=== PATIENT | male | born 1950 | race African-American/Black ===

== ENCOUNTER 2022-05-19 10:31 | Observation (INO) ==
[2022-05-19] MEDS ORDERED: ENOXAPARIN 100 MG/ML SYRINGE SUBCUT STA (11:00)
[2022-05-19] MEDS ORDERED: ONDANSETRON 4 MG/2 ML VIAL IV STA (11:00)
[2022-05-19] MEDS ORDERED: ASPIRIN 325 MG TABLET PO STA (11:00)
[2022-05-19] MEDS ORDERED: NITROGLYCERIN SL 0.4 MG TABLET SL PRN (11:00)
[2022-05-19] MEDS ORDERED: ASPIRIN 325 MG TABLET ONE (11:01)
[2022-05-19 11:16] LABS: Basophils # 0.1 10*3/uL (0.0-0.2); Basophils % 1.2 % (0.0-0.8); Eosinophils # 0.1 10*3/uL (0.0-0.87); Eosinophils % 1.4 % (0.00-10.9); Hematocrit 41.6 VOL% (42.0-52.0); Hemoglobin 14.3 GM/DL (14.0-18.0); Immature Granulocytes % 0.2 %; Immature Granulocytes Absolute 0.01 #; Lymphocytes # 1.5 10*3/uL (1.4-4.0); Lymphocytes % 25.5 % (21.2-54.2); Mean Corpuscular HGB Conc 34.4 GM/DL (32-36); Mean Corpuscular Volume 92.4 FL (87-102); Mean Platelet Volume 11.7 FL (9.6-12.0); Monocytes # 0.6 10*3/uL (0.11-0.8); Monocytes % 10.7 % (1.7-12.7); Platelet Count 193 T/CUMM (130-400); Red Cell Distribution Width 13.5 % (9.3-17.3); White Blood Count 5.9 T/CUMM (4-12)
[2022-05-19 11:36] LABS: Albumin 4.4 G/DL (3.4-5.0); Bilirubin,Total 0.5 MG/DL (0.20-1.00); Osmolality,Calculated 284.3 MOS/KG (273-304); Potassium 3.7 MMOL/L (3.5-5.1); Total Protein 8.4 G/DL (6.4-8.2)
[2022-05-19] MEDS ORDERED: LACTULOSE 20 GM/30 ML UDCUP PO PRN (12:22)
[2022-05-19] MEDS ORDERED: ACETAMINOPHEN 325 MG TABLET PO PRN (12:22)
[2022-05-19] MEDS ORDERED: SIMETHICONE CHEW 125 MG TABLET PO PRN (12:22)
[2022-05-19] MEDS ORDERED: hydrALAZINE 20 MG/1 ML VIAL IV PRN (12:22)
[2022-05-19] MEDS ORDERED: ONDANSETRON 4 MG/2 ML VIAL IV PRN (12:22)
[2022-05-19] MEDS ORDERED: DOCUSATE SODIUM 100 MG CAPSULE PO PRN (12:22)
[2022-05-19] MEDS ORDERED: GLUCAGON 1 MG VIAL IM PRN (12:25)
[2022-05-19] MEDS ORDERED: DEXTROSE 10% 250 ML BAG IV PRN (12:27)
[2022-05-19] MEDS: SODIUM CHLORIDE 0.9% 1,000 ML IV SCH ×3 (14:10→23:08)
[2022-05-19] MEDS: INSULIN LISPRO 100 UNIT/ML SUBCUT SCH ×2 (17:58→21:35)
[2022-05-19] MEDS ORDERED: NORTRIPTYLINE 25 MG CAPSULE PO SCH (21:00)
[2022-05-19] MEDS ORDERED: SIMVASTATIN 20 MG TABLET PO SCH (21:00)
[2022-05-19] MEDS ORDERED: INSULIN GLARGINE 100 UNIT/ML SUBCUT SCH (21:00)
[2022-05-19] MEDS: PREGABALIN 100 MG CAPSULE PO SCH (21:31)
[2022-05-19] MEDS: PANTOPRAZOLE 40 MG VIAL IV SCH (21:32)
[2022-05-20 05:00] LABS: Basophils # 0.1 10*3/uL (0.0-0.2); Basophils % 1.9 % (0.0-0.8); Eosinophils # 0.2 10*3/uL (0.0-0.87); Eosinophils % 3.5 % (0.00-10.9); Hematocrit 36.3 VOL% (42.0-52.0); Hemoglobin 12.3 GM/DL (14.0-18.0); Immature Granulocytes % 0.2 %; Immature Granulocytes Absolute 0.01 #; Lymphocytes # 1.8 10*3/uL (1.4-4.0); Lymphocytes % 32.1 % (21.2-54.2); Mean Corpuscular HGB Conc 33.9 GM/DL (32-36); Mean Corpuscular Volume 93.6 FL (87-102); Mean Platelet Volume 11.8 FL (9.6-12.0); Monocytes # 0.8 10*3/uL (0.11-0.8); Monocytes % 13.6 % (1.7-12.7); Neutrophils % 48.7 % (38.7-73.9); Platelet Count 178 T/CUMM (130-400); Red Blood Count 3.88 MC/CUMM (3.8-5.5); Red Cell Distribution Width 13.3 % (9.3-17.3); White Blood Count 5.7 T/CUMM (4-12)
[2022-05-20 05:26] LABS: Albumin 3.4 G/DL (3.4-5.0); Bilirubin,Total 0.4 MG/DL (0.20-1.00); Calcium 8.3 MG/DL (8.5-10.1); Osmolality,Calculated 287.7 MOS/KG (273-304); Risk Ratio 3.77; Thyroid Stimulating Hormone 2.38 uIU/ml (0.358-3.74); Total Protein 6.8 G/DL (6.4-8.2); VLDL Cholesterol 38.6 MG/DL
[2022-05-20] MEDS: SODIUM CHLORIDE 0.9% 1,000 ML IV SCH ×3 (05:43→12:02)
[2022-05-20] MEDS ORDERED: POTASSIUM CHLORIDE 20 MEQ TABLET PO PRN (06:00)
[2022-05-20] MEDS ORDERED: LEVOTHYROXINE 88 MCG TABLET PO SCH (06:30)
[2022-05-20] MEDS: INSULIN LISPRO 100 UNIT/ML SUBCUT SCH ×2 (07:30→11:59)
[2022-05-20] MEDS: PREGABALIN 100 MG CAPSULE PO SCH (08:46)
[2022-05-20] MEDS: PANTOPRAZOLE 40 MG VIAL IV SCH (08:46)
[2022-05-20] MEDS ORDERED: LISINOPRIL/HCTZ 10-12.5 MG TABLET PO SCH (09:00)
[2022-05-20] MEDS ORDERED: amLODIPine 5 MG TABLET PO SCH (09:00)
[2022-05-20] MEDS ORDERED: TAMSULOSIN 0.4 MG CAPSULE PO SCH (09:00)
[2022-05-20] MEDS ORDERED: MULTIVITAMIN (CENTRUM) TABLET PO SCH (09:00)
[2022-05-20] MEDS ORDERED: FERROUS SULFATE 325 MG TABLET PO SCH (09:00)
[2022-05-20] MEDS ORDERED: OXYBUTYNIN XL 15 MG TABLET PO SCH (09:00)
[2022-05-20] MEDS ORDERED: lisinopriL 10 MG TABLET PO SCH (09:00)
[2022-05-20] MEDS ORDERED: ASPIRIN EC 81 MG TABLET PO SCH (09:00)
[2022-05-20] MEDS ORDERED: ENOXAPARIN 40 MG/0.4 ML SYRINGE SUBCUT SCH (12:00)
[2022-05-20 12:26] VITALS: BP 137/75
== END 2022-05-20 12:39 | disposition home or self-care (01) ==
LOC: N.EDINP 10:31 → N.ED 10:31 → SUATTDRO 12:22 → N.EDINP 15:30 → N.2W 15:59
PROVIDERS: ADMIT Internal Medicine; ATTEND Emergency Medicine